=== PATIENT | male | born 1990 | race Caucasian/White ===

== ENCOUNTER 2023-09-23 17:04 | Emergency (ER) | payer OTHER ==
[~2023-09-23] VITALS: Ht 177.8 cm; Wt 74.6 kg
[2023-09-23 18:23] VITALS: BP 146/88
== END 2023-09-23 18:34 | disposition home or self-care (01) ==
LOC: ED 17:04
DX: S93.402A Sprain of unspecified ligament of left ankle, initial encounter (principal); W18.42XA Slipping, tripping and stumbling without falling due to stepping into hole or opening, initial encounter
CPT/HCPCS: 73610; 99283

== ENCOUNTER 2023-10-02 10:42 | Emergency (ER) | payer OTHER, BC ==
[~2023-10-02] VITALS: Ht 177.8 cm; Wt 75.5 kg
[~2023-10-02 10:42] MED LIST: NORCO 5-325 TA1 EACH PO; PERCOCET 7.5-31 EACH PO
--- OUTSIDE RECORDS SUMMARY | 2023-10-02 10:44 | XMS ---
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 Bibiana has no Care Guidelines for this patient. [facility] MO.) [facility] NOTE: Visits indicate total known visits. ED/C VISIT TRACKING (12 MO.) 10/02/2023 10:42 [facility] [place] TYPE: Emergency COMPLAINT: - LT ANKLE PAIN 09/23/2023 17:05 [facility] [place] TYPE: Emergency COMPLAINT: - ANKLE INJURY DIAGNOSES: - Pain in left ankle and joints of left foot - Slipping, tripping and stumbling without falling due to stepping into hole or opening, initial encounter - Sprain of unspecified ligament of left ankle, initial encounter INPATIENT VISIT TRACKING (12 MO.) No inpatient visits to display in this time frame [email or web address]
[2023-10-02 10:59] VITALS: BP 143/85
== END 2023-10-02 10:59 | disposition home or self-care (01) ==
LOC: ED 10:42
DX: Z02.79 Encounter for issue of other medical certificate (principal)
CPT/HCPCS: 99283

== ENCOUNTER 2024-10-19 05:35 | Day surgery (SDC) | payer BC ==
[~2024-10-19] VITALS: Ht 177.8 cm; Wt 80.0 kg
[2024-10-19 05:57] VITALS: BP 135/75
[2024-10-19] MEDS ORDERED: ZYRTEC10 M3 PO (05:59)
[2024-10-19] MEDS ORDERED: MIDAZOLAM HCL 2 MG/2 ML VIAL ONE (07:21)
[2024-10-19] MEDS ORDERED: fentaNYL citrate 100 MCG/2 ML VIAL ONE (07:21)
[2024-10-19] MEDS ORDERED: ROCURONIUM BROMIDE 50 MG/5 ML SYR ONE (07:21)
[2024-10-19] MEDS ORDERED: LIDOCAINE HCL 2% 5 ML SDV ONE (07:21)
[2024-10-19] MEDS ORDERED: DEXAMETHASONE SOD PHOS 4 MG/ML VIAL ONE (07:21)
[2024-10-19] MEDS ORDERED: SUCCINYLCHOLINE IN 0.9% NACL 200 MG/10 ML SYRINGE ONE (07:21)
[2024-10-19] MEDS ORDERED: BUPIVACAINE HCL 0.25% 50 ML MDV ONE (07:34)
[2024-10-19] MEDS ORDERED: ACETAMINOPHEN 1,000 MG/100 ML VIAL IV ONE (08:40)
--- NOTE | 2024-10-19 08:49 | NUR ---
10/19/24 0849 Kassie Moody 0839-PATIENT ARRIVED TO PACU NONAROUSABLE ON 8L MASK ORAL AIRWAY IN PLACE RN DOING JAW THRUST TO MAINTAIN OPEN AIRWAY. SR HR 70'S IVF INFUSING. 0845-PATIENT REMAINS NONAROUSABLE ABLE TO MAINTAIN AIRWAY WITH ORAL AIRWAY IN PLACE. 6L MASK RR EVEN 100%
--- NOTE | 2024-10-19 08:53 | NUR ---
PT NOT AVAILABLE FOR VISIT. PROVIDED PRAYER.
[2024-10-19] MEDS ORDERED: ACETAMINOPHEN 1,000 MG/100 ML VIAL ONE (08:58)
[2024-10-19] MEDS ORDERED: KETOROLAC TROMETHAMINE 30 MG/ML VIAL ONE (09:07)
[2024-10-19] MEDS ORDERED: HYDROmorphone HCL 1 MG/ML SYR ONE (09:08)
[2024-10-19] MEDS ORDERED: MEPERIDINE HCL 25 MG/1 ML VIAL IV PRN (09:15)
[2024-10-19] MEDS ORDERED: HYDROmorphone HCL 1 MG/ML SYR IV PRN ×2 (09:15→09:30)
[2024-10-19] MEDS ORDERED: KETOROLAC TROMETHAMINE 30 MG/ML VIAL IV ONE (09:15)
[2024-10-19] MEDS ORDERED: NALOXONE HCL 0.4 MG SYR IV PRN (09:15)
[2024-10-19] MEDS ORDERED: fentaNYL citrate 50 MCG/ML SDV IV PRN (09:15)
[2024-10-19] MEDS ORDERED: SEVOFLURANE 250 ML BTL INH ONE (10:04)
[2024-10-19 10:14] VITALS: BP 120/63
[2024-10-19] MEDS ORDERED: OXYCODONE/APAP 5/325 TAB PO PRN (10:15)
--- NOTE | 2024-10-19 10:52 | NUR ---
IN PT ROOM FOR PAIN ASSESSMENT. PT REPORTS HE FEELS A LOT OF PRESSURE IN HIS ANUS AND FEELS LIKE HE NEEDS TO GO TO THE RESTROOM. THIS RN EDUCATES PT ABOUT CLEANOUT FROM PREP, PACKING IN PLACE, AND SWELLING FROM SURGERY. PT STATES VERBAL UNDERSTANDING AND AGREES TO ATTEMPT WALKING TO AID IN PAIN RELIEF. PT WALKS X2 LAPS AROUND UNIT W/2 RN STANDBY ASSIST. PT GAIT IS STEADY AND REPORTS NO DIZZINESS OR NAUSEA W/AMBULATION. PT STATES THIS DRAMATICALLY REDUCES THE PRESSURE/PAIN AND HIS PAIN IS TOLERABLE AT THIS TIME. PT URINE VOIDS IN URINAL. RADHA ARRIAGA IN RM AT 1108 AND LOBO'S URINE VOLUME AMOUNT FOR DC. PT RESTING IN BED, CALL LIGHT WITHIN REACH. PT STATES NO FURTHER NEEDS OR QUESTIONS AT THIS TIME.
[2024-10-19 11:06] VITALS: BP 121/70
--- NOTE | 2024-10-19 11:15 | NUR ---
PT PARTNER ARRIVES BACK FROM THE STORE. PT EDUCATED ABOUT USE OF SUPPLIES THAT WERE RETRIEVED. PT AND PARTNER STATE VERBAL UNDERSTANDING AT THIS TIME. CALL LIGHT WITHIN REACH, PT STATES NO NEEDS AT THIS TIME.
--- NOTE | 2024-10-19 11:30 | NUR ---
PT GETTING DRESSED AT THIS TIME W/PT PARTNER ASSISTANCE. CALL LIGHT WITHIN REACH.
--- NOTE | 2024-10-19 11:40 | NUR ---
IN PT ROOM FOR DC EDUCATION. PT AND PT PARTNER STATE VERBAL UNDERSTANDING TO DC EDUCATION AT THIS TIME. SITZ BATH SUPPLIES PROVIDED, ALONG WITH ADDITIONAL MESH UNDERWEAR AND ABD PADS. PT OFF OF UNIT VIA WC TO PASSENGER SIDE OF VEHICLE. PT AND PT PARTNER REPORT NO FURTHER NEEDS AT THIS TIME. ALL BELONGINGS IN PT POSSESSION AT THIS TIME.
[2024-10-20] MEDS ORDERED: OXYCODONE-ACET1 EAC1 PO (01:24)
[2024-10-20] MEDS ORDERED: LIDOCAINE HCL 2% (01:24)
[2024-10-20] MEDS ORDERED: CEPHALEXIN500 MG PO (01:24)
[2024-10-20] MEDS ORDERED: ONDANSETRON ODT4 MG PO (03:54)
--- NOTE | 2024-10-21 08:49 | OR ---
[facility] [address] [place], [place] [address] Signed DATE OF OPERATION: 10/19/2024 SURGEON: Marlyn Dominguez DO PREOPERATIVE DIAGNOSIS: Thrombotic internal and external hemorrhoids. POSTOPERATIVE DIAGNOSIS: Thrombotic internal and external hemorrhoids. PROCEDURE PERFORMED: Internal and external hemorrhoidectomy and sigmoidoscopy. ANESTHESIA: General. EBL: Less than 20 mL. DRAINS: None. COMPLICATIONS: None. DESCRIPTION OF PROCEDURE: The patient was brought to the operating room and placed in the supine position. After induction of general endotracheal anesthesia, the patient was placed in the prone position under satisfactory anesthesia. The region was then sterilely shaved, prepped and draped in usual fashion. Using bivalve anal speculum, the hemorrhoids were inspected, found to be somewhat circumferential, both thrombotic internal and external hemorrhoids. At approximately 3 o'clock position, the hemorrhoids were started to address. Utilizing the pickup forceps and LigaSure device, the hemorrhoids were excised and the thrombotic hemorrhoids were excised externally and then below the dentate line, the internal hemorrhoids were excised as well utilizing LigaSure device. Bleeding points were controlled with electrocautery. This was done in circumferential fashion inferiorly at approximately 5 o'clock, 7 o'clock, 9, 11 and 12 o'clock thrombotic external and internal hemorrhoids were ligated with the LigaSure device and bleeding points were controlled with electrocautery. A foam pack was then placed and hemostasis was maintained. Bleeding points were controlled with electrocautery. A foam pack was Electronically Signed By: MARLYN DOMINGUEZ DO 10/21/24 0849 PATIENT NAME: TROY BECKETT OPERATIVE REPORT DATE OF : [birth year] REPORT #: [id number] PHYSICIAN: MARLYN DOMINGUEZ DO PCP: NO PRIMARY CARE PHYSICIAN REPORT IS CONFIDENTIAL AND NOT TO BE RELEASED WITHOUT AUTHORIZATION [address] [place] [address] Signed placed in the rectal vault and sterile dressing was applied. The patient tolerated the procedure well and went to recovery room in recovery condition. DO STARR Dailey/MODL /[id number] Copies: ~ Electronically Signed By: MARLYN DOMINGUEZ DO 10/21/24 0849 PATIENT NAME: TROY BECKETT OPERATIVE REPORT DATE OF : [birth year] REPORT #: [id number] PHYSICIAN: MARLYN DOMINGUEZ DO PCP: NO PRIMARY CARE PHYSICIAN REPORT IS CONFIDENTIAL AND NOT TO BE RELEASED WITHOUT AUTHORIZATION
== END 2024-10-19 11:47 | disposition home or self-care (01) ==
LOC: DS 05:35 → OPS 05:35 → DS 07:30 → OPS 09:00 → DS 09:00 → OPS 11:47
PROVIDERS: ATTEND Surgery
PROC: 06BY0ZC Excision of Hemorrhoidal Plexus, Open Approach (ICD-10-PCS; principal; 2024-10-19 07:30)
DX: K64.5 Perianal venous thrombosis (principal); K64.8 Other hemorrhoids
CPT/HCPCS: 00902; J0131; J0330; J1100; J1171; J1885; J2003; J2250; J2405; J2704; J3010; J3490

== ENCOUNTER 2024-10-20 01:03 | Emergency (ER) | payer BC ==
[~2024-10-20] VITALS: Ht 177.8 cm; Wt 78.0 kg
[~2024-10-20 01:03] MED LIST changes: +ZYRTEC10 M3 PO
[2024-10-20] MEDS ORDERED: CEPHALEXIN500 MG PO (01:24)
[2024-10-20] MEDS ORDERED: LIDOCAINE HCL 2% (01:24)
[2024-10-20] MEDS ORDERED: OXYCODONE-ACET1 EAC1 PO (01:24)
[2024-10-20 01:30] LABS: BASOPHILS 0.1 % (0.2-1.2); EOSINOPHILS 0 % (0.8-7.0); LYMPHOCYTES 8.8 % (21.8-53.1); MCH 29.3 PG (25.7-32.2); MCHC 34.1 g/dL (32.3-36.5); MCV 86.1 fL (79.0-92.2); MONOCYTES 5.9 % (5.3-12.2); NEUTROPHILS 84.6 % (34.0-67.9); RBC 4.09 M/uL (4.63-6.08)
[2024-10-20 01:44] LABS: ALT (SGPT) 24.0 U/L (14-59); AST (SGOT) 22.0 U/L (15-37); GLOMERULAR FILTRATION RATE,EST 87.0 mL/min (>60); PROTEIN, TOTAL 6.6 g/dL (6.4-8.2); UREA NITROGEN 13.0 mg/dL (7-18)
[2024-10-20 01:46] LABS: SMEAR REVIEW BLOOD SEE COMMENTS
[2024-10-20] MEDS ORDERED: TRANEXAMIC ACID IN NACL,ISO-OS 1,000 MG/100 ML PIGGYBACK IV SCH (02:00)
[2024-10-20] MEDS ORDERED: LACTATED RINGER'S 1,000 ML IV ONE (02:00)
[2024-10-20 02:04] LABS: ABO O; ANTIBODY SCREEN NEGATIVE; RH POSITIVE
[2024-10-20] MEDS ORDERED: MORPHINE SULFATE 4 MG/ML VIAL IV ONE (02:15)
[2024-10-20] MEDS ORDERED: LIDOCAINE 2% VISCOUS 6 ML SYR TOP ONE (02:15)
[2024-10-20] MEDS ORDERED: FAMOTIDINE 20 MG/ 2 ML VIAL IV ONE (02:45)
[2024-10-20] MEDS ORDERED: OXYCODONE HCL 5 MG TAB PO ONE (03:30)
[2024-10-20] MEDS ORDERED: LIDOCAINE 2% VISCOUS 6 ML SYR MM ONE (03:45)
[2024-10-20] MEDS ORDERED: ONDANSETRON ODT4 MG PO (03:54)
[2024-10-20] MEDS ORDERED: ONDANSETRON 4 MG HOME.PACK SL ONE (04:00)
[2024-10-20 04:05] VITALS: BP 135/72
== END 2024-10-20 04:05 | disposition home or self-care (01) ==
LOC: ED 01:03
PROVIDERS: Internal Medicine
DX: G89.18 Other acute postprocedural pain (principal); Z79.2 Long term (current) use of antibiotics; Z79.899 Other long term (current) drug therapy
CPT/HCPCS: 36415; 80053; 85025; 85060; 86850; 86900; 86901; 96361; 96365; 96375; 99283-25; A9270; J1790; J2270; J2405; J7121